=== PATIENT | male | born 1945 | race Caucasian/White ===

== ENCOUNTER 2016-12-29 10:42 | Inpatient (IN) | payer MEDICARE ==
[~2016-12-29] VITALS: Ht 185.4 cm; Wt 106.4 kg
[2016-12-29] MEDS ORDERED: NALOXONE HCL 1 MG/ML 2 ML SYG IVP ONE (10:45)
[2016-12-29] MEDS ORDERED: SODIUM CHLORIDE 0.9% 1,000 ML IV ONE ×2 (10:45→11:15)
[2016-12-29] MEDS ORDERED: ASCO500 PO (10:56)
[2016-12-29] MEDS ORDERED: MEMA5 PO (10:56)
[2016-12-29] MEDS ORDERED: METF500T4 PO (10:56)
[2016-12-29] MEDS ORDERED: CARV12 PO (10:56)
[2016-12-29] MEDS ORDERED: LISI-662 PO (10:56)
[2016-12-29] MEDS ORDERED: INSLAN SQ (10:56)
[2016-12-29] MEDS ORDERED: RISP.5 PO (10:56)
[2016-12-29] MEDS ORDERED: ATOR40TA28 PO (10:56)
[2016-12-29] MEDS ORDERED: MULT1CAP32 PO (10:56)
[2016-12-29] MEDS ORDERED: OLAN5TAB2 PO (10:56)
[2016-12-29] MEDS ORDERED: DONE10TA PO (10:56)
[2016-12-29] MEDS ORDERED: ASPI81 PO (10:56)
[2016-12-29 11:02] LABS: BASOPHILS % (AUTO) 0.6 % (0.0-2.0); EOSINOPHILS % (AUTO) 5.5 % (1.0-6.0); HEMATOCRIT 33.9 % (41-53); HEMOGLOBIN 11.3 g/dL (13.5-17.5); LYMPHOCYTES # (AUTO) 2.2 K/uL (1.0-4.8); MEAN CORPUSCULAR HEMOGLOBIN 28.8 pg (26.0-34.0); MEAN CORPUSCULAR HGB CONC 33.2 G/dL (31.0-37.0); MEAN CORPUSCULAR VOLUME 87 fL (80-100); MONOCYTES # (AUTO) 0.7 K/uL (0.1-1.0); MONOCYTES % (AUTO) 7.4 % (2.0-9.0); NEUTROPHILS # (AUTO) 5.8 K/uL (1.8-7.7); NEUTROPHILS % (AUTO) 62.5 % (40.0-70.0); PLATELET COUNT (AUTO) 332 K/uL (150-450); RED BLOOD CELL COUNT(AUTO) 3.92 MIL/uL (4.50-5.90); RED CELL DISTRIBUTION WIDTH 14.4 % (11.5-14.5); WHITE BLOOD COUNT (AUTO) 9.2 K/uL (4.5-11.0)
[2016-12-29 11:19] LABS: ANION GAP 9 mmol/L (8-16); CALCIUM, TOTAL 9.4 mg/dL (8.8-10.5); CARBON DIOXIDE 25 mmol/L (22-29); CHLORIDE 111 mmol/L (98-107); CREATININE 1.51 mg/dL (0.60-1.30); GLOMERULAR FILTR. RATE CALC 46 mL/min (>60); POTASSIUM 4.8 mmol/L (3.5-5.1); SODIUM SERUM 145 mmol/L (136-145); UREA NITROGEN, BLOOD 48 mg/dL (7-18)
[2016-12-29 11:21] LABS: TROPONIN I 0.02 ng/mL (0.00-0.05)
[2016-12-29 11:25] LABS: ALANINE AMINOTRANSFERASE 14 U/L (12-78); ALBUMIN 3.1 g/dL (3.4-5.0); ASPARTATE AMINOTRANSFERASE 12 U/L (15-37); BILIRUBIN,TOTAL 0.3 mg/dL (0.1-1.0); CREATINE KINASE, TOTAL 48 U/L (39-308); TOTAL PROTEIN, SERUM 7.1 g/dL (6.4-8.2)
[2016-12-29 11:29] LABS: GLUCOSE,POINT OF CARE 67 MG/DL (70-110)
[2016-12-29 11:45] LABS: LACTIC ACID 1.9 mmol/L (0.4-2.0)
[2016-12-29 11:59] LABS: GLUCOSE COMMENT 1 Doctor Notified; GLUCOSE,POINT OF CARE 36 MG/DL (70-110)
[2016-12-29] MEDS ORDERED: DEXTROSE 50%-WATER 25 GM/50 ML SYRINGE IVP ONE ×2 (12:00→12:45)
[2016-12-29] MEDS: SODIUM CHLORIDE 0.9% 1,000 ML IV ONE ×2 (12:00→12:09)
[2016-12-29 12:11] LABS: PROCALCITONIN (PCT) < 0.05 ng/mL (<0.50)
[2016-12-29 12:17] LABS: ADD UA MICROSCOPIC NO; APPEARANCE,URINE HAZY (CLEAR); GLUCOSE, URINE (UA) NEGATIVE (NEGATIVE); KETONES,URINE NEGATIVE (NEGATIVE); LEUKOCYTE ESTERASE ,URINE NEGATIVE (NEGATIVE); OCCULT BLOOD,URINE NEGATIVE (NEGATIVE); PROTEIN,URINE NEGATIVE (NEGATIVE)
[2016-12-29 12:31] LABS: INFLUENZA TYPE B NEGATIVE FOR TYPE B (NEGATIVE)
[2016-12-29] MEDS ORDERED: SODIUM CHLORIDE 77 MEQ in DEXTROSE 10%-WATER 1,000 ML IV ONE (12:45)
[2016-12-29] MEDS ORDERED: ONDANSETRON HCL 4 MG/2 ML VIAL IVP ONE (12:45)
[2016-12-29 12:47] LABS: GLUCOSE,POINT OF CARE 59 MG/DL (70-110)
[2016-12-29] MEDS ORDERED: ACETAMINOPHEN 650 MG/20.3 ML SOLUTION UDCUP PO PRN (13:00)
[2016-12-29] MEDS: DEXTROSE 5%-0.45% SODIUM CHL 1,000 ML IV SCH (13:27)
[2016-12-29 13:52] LABS: GLUCOSE,POINT OF CARE 118 MG/DL (70-110)
[2016-12-29 15:02] LABS: GLUCOSE,POINT OF CARE 143 MG/DL (70-110)
[2016-12-29] MEDS: HEPARIN SODIUM,PORCINE 5,000 UNITS/ML VIAL SQ SCH ×2 (15:06→23:53)
[2016-12-29 16:01] LABS: GLUCOSE,POINT OF CARE 167 MG/DL (70-110)
[2016-12-29 17:01] VITALS: BP 138/64
[2016-12-29] MEDS ORDERED: INFLUENZA VIRUS VACCINE QVS 2016-17 (3YR+)/PF 60 MCG/0.5 ML SYRINGE IM ONE (18:30)
[2016-12-29] MEDS ORDERED: PNEUMOCOCCAL VACCINE POLYVALENT 0.5 ML VIAL [PPSV23] IM ONE (18:30)
[2016-12-29 20:00] VITALS: BP 144/53
[2016-12-29] MEDS ORDERED: DEXTROSE 50%-WATER 25 GM/50 ML SYRINGE IVP PRN (21:45)
[2016-12-29] MEDS: INSULIN ASPART 100 UNITS/ML SQ PRN (21:58)
[2016-12-30] VITALS (7 sets, daily range): BP systolic 130–146; BP diastolic 38–64
[2016-12-30 01:01] LABS: GLUCOSE,POINT OF CARE 257 MG/DL (70-110)
[2016-12-30 01:01] LABS: GLUCOSE,POINT OF CARE 133 MG/DL (70-110)
[2016-12-30 01:01] LABS: GLUCOSE,POINT OF CARE 136 MG/DL (70-110)
[2016-12-30 01:01] LABS: GLUCOSE,POINT OF CARE 141 MG/DL (70-110)
[2016-12-30 01:01] LABS: GLUCOSE,POINT OF CARE 217 MG/DL (70-110)
[2016-12-30] MEDS: DEXTROSE 5%-0.45% SODIUM CHL 1,000 ML IV SCH ×2 (02:45→15:16)
[2016-12-30] MEDS: INSULIN ASPART 100 UNITS/ML SQ PRN ×4 (05:59→21:30)
[2016-12-30 06:12] LABS: GLUCOSE,POINT OF CARE 203 MG/DL (70-110)
[2016-12-30] MEDS: PANTOPRAZOLE SODIUM 40 MG DR TABLET PO SCH (08:46)
[2016-12-30] MEDS: HEPARIN SODIUM,PORCINE 5,000 UNITS/ML VIAL SQ SCH ×2 (08:49→17:39)
[2016-12-30 10:16] LABS: BASOPHILS % (AUTO) 0.7 % (0.0-2.0); EOSINOPHILS % (AUTO) 4.7 % (1.0-6.0); HEMATOCRIT 31.3 % (41-53); HEMOGLOBIN 10.4 g/dL (13.5-17.5); LYMPHOCYTES # (AUTO) 2.2 K/uL (1.0-4.8); LYMPHOCYTES % (AUTO) 23.8 % (22.0-44.0); MEAN CORPUSCULAR HEMOGLOBIN 28.9 pg (26.0-34.0); MEAN CORPUSCULAR HGB CONC 33.2 G/dL (31.0-37.0); MEAN CORPUSCULAR VOLUME 87 fL (80-100); MONOCYTES # (AUTO) 0.6 K/uL (0.1-1.0); MONOCYTES % (AUTO) 6.2 % (2.0-9.0); NEUTROPHILS % (AUTO) 64.6 % (40.0-70.0); PLATELET COUNT (AUTO) 299 K/uL (150-450); RED CELL DISTRIBUTION WIDTH 14.4 % (11.5-14.5); WHITE BLOOD COUNT (AUTO) 9.3 K/uL (4.5-11.0)
[2016-12-30 10:42] LABS: ALANINE AMINOTRANSFERASE 14 U/L (12-78); ALBUMIN 2.8 g/dL (3.4-5.0); ANION GAP 8 mmol/L (8-16); ASPARTATE AMINOTRANSFERASE 12 U/L (15-37); BILIRUBIN,TOTAL 0.3 mg/dL (0.1-1.0); CALCIUM, TOTAL 8.3 mg/dL (8.8-10.5); CARBON DIOXIDE 24 mmol/L (22-29); CHLORIDE 107 mmol/L (98-107); CREATININE 1.06 mg/dL (0.60-1.30); GLOMERULAR FILTR. RATE CALC > 60 mL/min (>60); POTASSIUM 5.6 mmol/L (3.5-5.1); SODIUM SERUM 139 mmol/L (136-145); TOTAL PROTEIN, SERUM 6.6 g/dL (6.4-8.2); UREA NITROGEN, BLOOD 29 mg/dL (7-18)
[2016-12-30 10:43] LABS: HEMOGLOBIN A1C 8.3 % (4.5-6.2)
[2016-12-30 10:45] LABS: IRON, SERUM 62 mcg/dL (50-175); TOTAL IRON BINDING CAPACITY 216 mcg/dL (250-450)
[2016-12-30 18:11] LABS: GLUCOSE COMMENT 1 Received Meds; GLUCOSE,POINT OF CARE 356 MG/DL (70-110)
[2016-12-30 18:11] LABS: GLUCOSE,POINT OF CARE 271 MG/DL (70-110)
[2016-12-30 21:36] LABS: GLUCOSE COMMENT 1 Received Meds; GLUCOSE,POINT OF CARE 337 MG/DL (70-110)
[2016-12-31] MEDS: HEPARIN SODIUM,PORCINE 5,000 UNITS/ML VIAL SQ SCH ×2 (00:31→08:00)
[2016-12-31 00:36] VITALS: BP 158/69
[2016-12-31 04:08] VITALS: BP 142/59
[2016-12-31] MEDS: INSULIN ASPART 100 UNITS/ML SQ PRN ×2 (06:19→11:46)
[2016-12-31 07:42] VITALS: BP 139/63
[2016-12-31] MEDS: PANTOPRAZOLE SODIUM 40 MG DR TABLET PO SCH (09:35)
[2016-12-31 11:40] VITALS: BP_SYST 126; BP_SYST 131; BP_DIAS 55; BP_DIAS 62
[2016-12-31 12:17] LABS: GLUCOSE COMMENT 1 Received Meds; GLUCOSE,POINT OF CARE 223 MG/DL (70-110)
[2016-12-31 12:17] LABS: GLUCOSE COMMENT 1 Received Meds; GLUCOSE,POINT OF CARE 171 MG/DL (70-110)
== END 2016-12-31 15:17 | DRG 637 ==
LOC: EMS 10:44 → ICU 15:09 → 6N 12-30 18:35
PROVIDERS: ADMIT Hospitalist; ATTEND Hospitalist
DX: E11.649 Type 2 diabetes mellitus with hypoglycemia without coma (principal); G93.41 Metabolic encephalopathy; E44.1 Mild protein-calorie malnutrition; I50.22 Chronic systolic (congestive) heart failure; I69.354 Hemiplegia and hemiparesis following cerebral infarction affecting left non-dominant side; N17.0 Acute kidney failure with tubular necrosis; I95.9 Hypotension, unspecified; F03.90 Unspecified dementia, unspecified severity, without behavioral disturbance, psychotic disturbance, mood disturbance, and anxiety; D64.9 Anemia, unspecified; E78.00 Pure hypercholesterolemia, unspecified; E78.5 Hyperlipidemia, unspecified; I11.0 Hypertensive heart disease with heart failure; I25.10 Atherosclerotic heart disease of native coronary artery without angina pectoris; R09.02 Hypoxemia; Z87.891 Personal history of nicotine dependence; Z95.1 Presence of aortocoronary bypass graft; Z88.0 Allergy status to penicillin; Z79.82 Long term (current) use of aspirin; Z79.899 Other long term (current) drug therapy; Z68.30 Body mass index [BMI] 30.0-30.9, adult
CPT/HCPCS: 51702; 70450; 82607; 82746; 82962; 83036; 83540; 83550; 83605; 84145; 87040; 87081; 87804; 90471; 93005; 93306; 96361; 96374; 96375; 96376; 99291; J1644; J2310; J2405; J7030; J7131